=== PATIENT | female | born 1990 | race Caucasian/White ===

== ENCOUNTER 2024-12-22 14:29 | Outpatient (CLI) | payer OTHER, SELFPAY ==
--- OUTSIDE RECORDS SUMMARY | 2024-12-22 14:34 | XMS_ITS | Referral Summary ---
Author Organization [address] Address [facility] [place] [address] Care Team Providers Care Golf Club Weigher Name Role Phone Kitty Roach MD Primary Care Provider [phone] Allergies No known active allergies Medications 25/iron fum/folic/dha (-1 ORAL) Take by mouth Active escitalopram (LEXAPRO) 10 mg tablet Take 2 tablets (20 mg total) by mouth daily 3 Active norethindrone (MICRONOR) 0.35 mg tabletIndications: Contraception Take 1 tablet (0.35 mg total) by mouth daily 84 tablet 3 3 Active Active Problems Problem Noted Date Diagnosed Date care following vaginal delivery 09/08 Overview (09/09/2023): # ID: Afebrile. No signs/symptoms of infection. # Heme: EBL 250 mL. Hemodynamically stable. # CV/Pulm: Gestational hypertension - Blood pressures well controlled on no meds. Asymptomatic, denies HARRELL/RUQ pain/vision changes. CBC/CMP wnl, UPC <136.2. Enrolled in home BP monitoring. # GI/: Tolerating PO. Voiding spontaneously. # Pain: Controlled with above regimen. # MOC: Desires to defer until PP visit. # MOF: . Urine drug screen not indicated. Patient informed of results: N/A. # Post DVT prophylaxis: The patient has the following MAJOR risk factors none and the following MINOR risk factors none. SCDs ordered for VTE prophylaxis. # Disposition: Follow up to be scheduled with primary OB. Desires discharge home today. Meeting milestones. Generalized anxiety disorder 01/10/2020 Resolved Problems Problem Noted Date Diagnosed Date Resolved Date Gestational hypertension, third trimester 09/07/2023 10/18/2023 Encounter for induction of labor 09/07/2023 10/18/2023 Overview (09/07/2023): Ashwin Thomas is a 33 y.o. female at 39w0d who is dated by L=1 and is being admitted for an induction of labor secondary to gHTN . Admit to L&D: Consents signed and placed in chart. Labs: CBC and T&S pending. Induction of labor with oxytocin . FWB: Continuous monitoring. Reactive NST. ID: 3rd trimester HIV (>28 wga) negative on 08/19. GBS negative on 08/19 . RPR on admission: negative. Membrane Status: intact. Indications for UDS: none. Verbal consent obtained for UDS: Not indicated. MOF: Plans to breastfeed. Urine drug screen not indicated. Patient informed of results: N/A. MOC: Undecided on contraception. Pain management: Desires epidural. Post DVT prophylaxis: The patient has the following MAJOR risk factors none and the following MINOR risk factors none. SCDs will be ordered for VTE prophylaxis . gHTN: met criteria with 2 MR BPs in office on multiple different visits. CBC/CMP on admission wnl, UPC <0.1. Supervision of other normal , antepartum 01/25/2023 10/18/2023 Overview (09/07/2023): -GEORGI pt until 10/29, spontaneous preg! Anxiety-stable on escitalopram -pap neg at NOB -COVID+ @ 22wks and 31 weeks, for 36wk growth sched 08/19 -EFW 94% @ 36wks -Gestational HTN at [id number]--rpng for IOL [x] Initial BMI: 23 [x] Labs: Labs: Lab Results Component Value Date ABORH O Positive 02/02/2023 IDCOOMB Negative 02/02/2023 [id number] Nonreactive 02/02/2023 LABRPR Nonreactive 02/02/2023 RUBELIGG Reactive 01/17/2022 HEPBSAG Nonreactive 02/02/2023 [x] Genetic Screening: Carrier panel negative for 200+ genes, nml Panorama [x] Baby ASA: n/a [x] 1hr GCT at 24-28wks: nml, 97 [x] Tdap (27-36wks):06/21/2023 AM [x] Flu Shot: 08/02-hr [x] COVID vaccine: [] Rhogam (if Rh neg): n/a O+ [x] GBS at 36 wks:Negative [x] [] control method: undecided [x] 39 weeks discussion of IOL vs. Expectant management: [x] Mode of delivery: anticipate [] For C/S bottle of CHG 4% and hand out provided @ 36wks Dax Cruz , circ+, , undecided on peds Teaching: [x] 1st visit [x] 28-30 week [x] 36 week Immunizations Name Administration Dates Next Due Influenza, Quadrivalent, June l Culture-based MDCK, Preservative Free, Antibiotic Free, Intramuscular 08/02/2023 Tdap 06/21/2023 Social History Tobacco Use Types Packs/Day Years Used Date Smoking Tobacco: Former Cigarettes Smokeless Tobacco: Never Tobacco Cessation:Counseling Given: Not Answered Alcohol Use Standard Drinks/Week Comments Yes 2 (1 standard drink = 0.6 oz pur e alcohol) Social Connection and Isolat ion Panel [NHANES] Answer Date Recorded In a typical week, how many times do you talk on the phone with family, friends, or neighbors? More than three times a week 09/09/2023 How often do you get togethe r with friends or relatives? More than three times a week 09/09/2023 How often do you attend chur ch or episcopalian services? Never 09/09/2023 Do you belong to any clubs o r organizations such as zoroastrianism groups, unions, fraternal or athletic groups, or school groups? No 09/09/2023 How often do you attend meet ings of the clubs or organizations you belong to? Never 09/09/2023 Are you , , di vorced, , never , or living with a partner? 09/09/2023 AUDIT-C Answer Date Recorded Q1: How often do you have a drink containing alcohol? Never 02/02/2023 Q2: How many drinks containi ng alcohol do you have on a typical day when you are drinking? Patient does not drink 3 Q3: How often do you have si x or more drinks on one occasion? Never 02/02/2023 Overall Financial Resource Strain (CARDIA) Answe r Date Recorded How hard is it for you to pa y for the very basics like food, housing, medical care, and heating? Not very hard 09/09/2023 Exercise Vital Sign Answer Date Recorde d On average, how many days pe r week do you engage in moderate to strenuous exercise (like a brisk walk)? 4 days 01/10/2020 On average, how many minutes do you engage in exercise at this level? 30 min 01/10/2020 Hunger Vital Sign Answer Date Recorded Within the past 12 months, y ou worried that your food would run out before you got the money to buy more. Never true 09/09/20 23 Within the past 12 months, t he food you bought just didn't last and you didn't have money to get more. Never true 09/09/2023 PRAPARE - Transportation Answer Date Re corded In the past 12 months, has l ack of transportation kept you from medical appointments or from getting medications? No 12/2022 In the past 12 months, has l ack of transportation kept you from meetings, work, or from getting things needed for daily living? No 09/09/2023 Housing Stability Vital Sign Answer Vu e Recorded In the last 12 months, was t here a time when you were not able to pay the mortgage or rent on time? No 09/09/2023 In the last 12 months, how many places have you lived? 1 09/09/2023 In the last 12 months, was t here a time when you did not have a steady place to sleep or slept in a fdc (including now)? No 09/09/2023 Custer Depression Scale Answer Date Recorded Custer Depression Scale Total 6 10/18/2023 The thought of harming myself has occurred to me . Never 10/18/2023 Personal Safety Answer Date Recorded Have you ever been in or are you currently in a harmful physical or emotional relationship or is someone making you feel afraid or unsafe? Denies 09/07/2023 Education Answer Date Recorded What is the highest level of school you have completed or the highest degree you have received? 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 file Not on file Not on f ile Last Filed Vital Signs Vital Sign Reading Time Taken Comments Blood Pressure 121/82 10/18/2023 2:52 PM LICENSED CLINICIAN Pulse 74 09/09/2023 7:35 AM CDT Temperature 36.3 C (97.3 F) 09/09/2023 7:35 AM CDT Respiratory Rate 18 09/09/2023 7:35 AM CDT Oxygen Saturation 100% 09/09/2023 7:35 AM CDT Inhaled Oxygen Concentration - - Weight 81 kg (178 lb 9.6 oz) 10/18/2023 2:52 PM LICENSED CLINICIAN Height 175.3 cm (5' 9.02 ) 10/18/2023 2:52 PM CS T Body Mass Index 26.36 10/18/2023 2:52 PM LICENSED CLINICIAN Plan of Treatment Not on file Procedures Procedure Name Priority Date/Time Associated Diagnosis Comments HEPATITIS C ANTIBODY Routine 06/02/2023 1:30 PM CDT Encounter for supervision of normal first in third trimester PAP AND HIGH RISK HPV, REFLEX TO GENOTYPING Routine 02/02/2023 1:59 PM CDT Supervision of other normal , antepartum from Last 3 Months or Most Recently Relevant to Health Maintenance Results * Hepatitis C antibody (06/02/2023 1:30 PM CDT) Hep C Ab Nonreactive Nonreactive [facility] Comment:Antibodies to HCV no t detected. Does NOT exclude the possibility of recent exposure to HCV. Current interpretive data was last revised on 22 Blood 06/02/2023 1:30 PM CDT 06/02/2023 2:20 PM CDT Darlin Bower NP LAB MICROBIOLOGY - GENERAL ORDERABLES Final Result [facility] Department [place] [address] * Pap and High Risk HPV, reflex to Genotyping (02/02/2023 1:59 PM CDT) Thin prep (Pap test) 02/02/2023 1:59 PM CDT 02/02/2023 4:40 PM CDT Narrative PATHOLOGY [facility] - 02/10/2023 2:37 PM CDT EPIC results best viewed via link to PDF [facility] [place] [address] Note to Patients: This report may contain a detailed description of human tissue sent by a health care provider to the laboratory for pathologic evaluation. The content of this report is essential for diagnosis and may provide important critical findings. This information may be unfamiliar to patients to review without a medical professional present. It is advised that the patient review this report in the presence of a health care provider who can answer questions and explain the details. CYTOPATHOLOGY REPORT FINAL Patient Name: ASHWIN THOMAS Gender: F : 1990 (Age: 32) Address: [address] [place] [phone] [facility] #: [id number] Service: Gynecology Location: Patient Type: [facility] SPECIMEN Taken: 02/02/2023 Received: 02/02/2023 Accessioned: 02/02/2023 Reported: 02/10/2023 Physician(s): Kelly Li M.D. FINAL INTERPRETATION SOURCE OF SPECIMEN Liquid based Thin Prep pap with HPV: STATEMENT OF ADEQUACY - Satisfactory for evaluation - No endocervical/transformation zone sample present in a patient GENERAL CATEGORIZATION: - Negative for squamous intraepithelial lesion or malignancy INTERPRETATION: - Reactive cellular changes Comments HPV Result: NEGATIVE for high risk types of Human Papilloma Virus (HPV) RNA This probe detects the presence of HPV types: 16, 18, 31, 33, 35, 39, 45, 51, 52, 56, 58, 59, 66 and 68. This HPV test was performed at in [place], [place] utilizing the Gen-Probe Aptima assay. 02/10/2023 09:47 By this signature, I attest that the above diagnosis is based upon my personal examination of the slides(and/or other material indicated in the diagnosis). Theo Urrutia M.D. Report Electronically Reviewed and Signed Out By Theo Urrutia M.D. 02/10/2023 14:37:44 RAMÍREZ Juarez(ASCP) Cervicovaginal Cytology (Pap Test) Disclaimer: The Pap test is a screening test used to detect cervical cancer and its precursors; it is not a diagnostic procedure. False negative and false positive results do occur. Pap test results should be interpreted in the context of pertinent clinical information and biopsy results as indicated. [facility] Clinical Laboratory Improvement Amendments (CLIA) mandate that cytologic and histologic results be correlated for laboratory manager quality improvement & improvement standards. FOR ALL HIGH-GRADE CASES we request submission of follow-up histological material and/or reports that have not been previously provided so that we may fulfill said required standards. Gross Description A. Liquid based Thin Prep pap with HPV: Cervical/vaginal - Screening ThinPrep GC CHLAMYDIA Clinical Diagnosis and History Last Menstrual Period: 12-08-2022 The patient is a 32-year-old female present for cervical cancer screening. [place] [address]. The Gonorrhea/[place] [address]. Report Images and scanned documents, if included only viewable in PDF version The performance characteristics of some immunohistochemical stains, in-situ hybridization and fluorescence in-situ hybridization tests and immunophenotyping by flow cytometry cited in this report (if any) were determined by the Surgical Pathology Department at [facility] as part of an ongoing coding quality analyst program and in compliance with federally mandated regulations drawn from the Clinical Laboratory Improvement Act of 1988 (CLIA '88). Some of these tests rely on the use of analyte specific reagents and are subject to specific labeling requirements by the US Food and Drug Administration. Such diagnostic tests may only be performed in a facility that is certified by the Department of Health and Human Services as a high complexity laboratory under CLIA '88. The FDA has determined that such clearance or approval is not necessary. This test is used for clinical purposes. It should not be regarded as investigational or for research. Nevertheless, federal rules concerning the medical use of analyte specific reagents require that the following disclaimer be attached to the report: This test was developed and its performance characteristics determined by the Surgical Pathology Department of [facility]. It has not been cleared or approved by the U. S. Food and Drug Administration. Kelly Li MD LAB CYTOLOGY O RDERABLES Final Result Performing Organization Address City/State/[facility] Co de Phone Number PATHOLOGY [facility] 3rd Floor [place], [place] [phone] from Last 3 Months or Most Recently Relevant to Health Maintenance Insurance [employer] [facility] H[facility]/PPO Address: [facility] [address] [place] [address] [facility] CHOICE [facility] H[facility]/PPO Address: [place] [id number] Advance Directives For more information, please contact: [phone] * Full Code (Latest Code Status on File) Date Activated Date Inactivated Comments 09/08/2023 7:58 AM 09/09/2023 7:06 PM * Full Code Date Activated Date Inactivated Comments 09/07/2023 10:26 PM 09/08/2023 7:58 AM Full CPR i n case of cardiopulmonary arrest Care Teams Golf Club Weigher Relationship Specialty [place] [address] [place] [id number] PCP - General Lumber Buyer 11/28/19
--- OUTSIDE RECORDS SUMMARY | 2024-12-22 14:34 | XMS_ITS | Clinical Summary ---
Author Organization [address] Address [facility] [place] [address] Care Team Providers Care Nursery Technician Name Role Phone Kitty Roach MD Primary Care Provider [phone] Allergies No known active allergies Medications 25/iron [...] -EFW 94% @ 36wks -Gestational HTN at 69b1o--mzgw for IOL [x] Initial BMI: 23 [x] Labs: Labs: Lab Results Component Value Date ABORH O Positive 02/02/2023 IDCOOMB Negative 02/02/2023 [id number] Nonreactive 02/02/2023 LABRPR Nonreactive 02/02/2023 RUBELIGG Reactive [...] Free, Antibiotic Free, Intramuscular 08/02/2023 Tdap 06/21/2023 Family History Medical History Relation Name Comments Mental illness Brother Mental illness Father No Known Problems Mother Relation Name Status Comments Brother Father Alive Mother Alive Social History Tobacco Use Types Packs/Day Years [...] 09/09/2023 How often do you attend chur or oriental orthodox services? Never 09/09/2023 Do you belong to any clubs o r organizations such as worship groups, unions, fraternal or athletic groups, or [...] place to sleep or slept in a halfway (including now)? 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 on file Not on file Not on f ile Obstetrics History Para Term AB IAB SAB Ectopic Multiple Livin g Live Births 1 1 1 0 0 0 0 0 0 1 1 Date Outcome GA Total Labor Labor/2nd/3rd Weight Sex Type Anes PTL Muna A1 A5 Name Clin 2022 Term 39w 1d 6h 25m 5h 06m/1h 15m/0h 04m 3.58 kg (7 lb 14.3 oz) M Vagina l Epidur al N Livin g 8 9 KRUTH OFF,B SHONA A Gregory rs, Gurwinder link MD Complications:None Delivery Location:[facility] Main C ampus ([facility] 58LD) Comments [id number] for new onset gHTN @ 39w0d (nml labs) Last Filed Vital Signs Vital Sign Reading Time Taken Comments Blood Pressure 121/82 10/18/2023 2:52 PM NAVAL SCIENCE TEACHER Pulse 74 09/09/2023 7:35 AM CDT Temperature 36.3 C (97.3 F) 09/09/2023 7:35 AM CDT Respiratory Rate 18 09/09/2023 7:35 AM CDT Oxygen Saturation 100% 09/09/2023 7:35 AM CDT Inhaled Oxygen Concentration - - Weight 81 kg (178 lb 9.6 oz) 10/18/2023 2:52 PM NAVAL SCIENCE TEACHER Height 175.3 cm (5' 9.02 ) 10/18/2023 2:52 PM CS T Body Mass Index 26.36 10/18/2023 2:52 PM NAVAL SCIENCE TEACHER Plan of Treatment Health Maintenance Due Date Last Done Comments Varicella Vaccines (1 of 2 - 13+ 2-dose series) 2005 Hepatitis B Screening 2010 Regular Well Visit/Exam 18-64 01/09/2021 01/10/2020 Cervical Cancer Screening 02/03/2024 02/02/2023 Covid-19 Vaccine ( season) 2024 10/10/2022, 11/03/2021, 01/24/2021, Additional history exists Influenza Vaccine (#1) 2024 08/02/2023 Depression Screening 10/18/2024 10/18/2023 DTaP/Tdap/Td Vaccine (2 - Td or Tdap) 06/21/2033 06/21/2023 Hepatitis C Screening Completed 06/02/2023 HPV Vaccines Aged Out No longer eligi ble based on patient's age to complete this topic Pneumococcal vaccine <65 Aged Out No longer eligible based on patient's age to complete this topic Procedures Procedure Name Priority Date/Time Associated Diagnosis [...] CDT) Hep C Ab Nonreactive Nonreactive [facility] Comment:Antibodies to HCV no t detected. Does NOT exclude the possibility of recent exposure to HCV. Current interpretive data was last revised on 22 Blood 06/02/2023 1:30 PM CDT 06/02/2023 2:20 PM CDT Darlin Bower NP LAB MICROBIOLOGY - GENERAL ORDERABLES Final Result KATH [facility] Department [place] [address] * Pap and High Risk HPV, reflex to Genotyping (02/02/2023 1:59 PM CDT) Thin prep (Pap test) 02/02/2023 1:59 PM CDT 02/02/2023 4:40 PM CDT Narrative PATHOLOGY [facility] - 02/10/2023 2:37 PM CDT EPIC results best viewed via link to PDF [facility] [place] [address] Note to Patients: This report may contain [...] Gender: F : 1990 (Age: 32) Address: [address] [place], [place] [id number] [facility] #: [id number] Service: Gynecology Location: Patient Type: [facility] SPECIMEN Taken: 02/02/2023 Received: 02/02/2023 Accessioned: [...] 68. This HPV test was performed at [facility] in [place], [place] utilizing the Gen-Probe Aptima assay. 02/10/2023 [...] clinical information and biopsy results as indicated. [facility] Clinical Laboratory Improvement Amendments (CLIA) mandate that cytologic and histologic results be correlated for laboratory quality control projectionist & improvement standards. FOR ALL HIGH-GRADE CASES [...] screening. The [place] [address]. The Gonorrhea/Chlamydia [place] [address]. Report Images and scanned documents, if included only viewable in PDF version The performance characteristics of some immunohistochemical stains, in-situ hybridization and fluorescence in-situ hybridization tests and immunophenotyping by flow cytometry cited in this report (if any) were determined by the Surgical Pathology Department at [facility] as part of an ongoing quality compliance coordinator program and in compliance with federally mandated [...] determined by the Surgical Pathology Department of [facility]. It has not been cleared or approved by the U. S. Food and Drug Administration. us Kelly Li MD LAB CYTOLOGY O RDERABLES Final Result PATHOLOGY [facility] 3rd Floor [place], [place] [phone] from Last 3 Months or Most Recently Relevant to Health Maintenance Insurance [facility] CHOICE PLUS [place] [id number] [facility] CHOICE PLUS [place] [id number] Advance Directives For more information, please contact: [phone] * Full Code (Latest Code Status on File) Date Activated Date Inactivated Comments 09/08/2023 7:58 AM 09/09/2023 7:06 PM * Full Code Date Activated Date Inactivated Comments 09/07/2023 10:26 PM 09/08/2023 7:58 AM Full CPR i n case of cardiopulmonary arrest Care Teams Nursery Technician Relationship Specialty Start Date End Date Kitty Roach MD [address] [place] [address] PCP - General Ironworker 11/28/19
[2024-12-22 14:57] LABS: Hematocrit 39.6 % (37.0-47.0); Hemoglobin 12.9 g/dL (12.0-15.0); Mean Corpuscular HGB Conc 32.6 g/dl (32-36); Mean Corpuscular Hemoglobin 29.7 pg (26-34); Mean Platelet Volume 9.6 fl (7.4-10.4); Platelet Count Result 206 k/mm3 (150-375); Red Blood Count 4.35 M/mm3 (4.2-5.4); Red Cell Distribution Width 13.1 % (11.5-14.5); White Blood Count 7.8 K/mm3 (4.5-10.0)
[2024-12-22 15:38] LABS: Hepatitis B Surface Antigen Negative (Negative); Rubella IgG Antibody 18.7 IU/ML
[2024-12-22 15:50] LABS: HIV 1/2 Ab P24 Ag Result Negative (Negative)
[2024-12-23 10:54] LABS: Rapid Plasma Reagin Non-Reactive (NonReactive)
[2024-12-25 16:08] LABS: CMV IgG Antibody <0.60 U/mL; Varicella IgG Antibody <1.00 S/CO
== END 2024-12-22 14:30 | disposition home or self-care (01) ==
PROVIDERS: Visit Provider Student in an Organized Health Care Education/Training Program
DX: N91.2 Amenorrhea, unspecified (principal)
CPT/HCPCS: 36415; 84702; 85027; 86592; 86644; 86703; 86747; 86762; 86787; 86850; 86900; 86901; 87086; 87340; G0432

== ENCOUNTER 2025-05-22 08:37 | Outpatient (CLI) | payer OTHER, SELFPAY ==
--- OUTSIDE RECORDS SUMMARY | 2025-05-22 08:43 | XMS_ITS | Referral Summary ---
Author Organization [address] Address [facility] [place] [address] Care Team Providers Care Waxer Floor Name Role Phone Kitty Roach MD Primary Care Provider [phone] Allergies No known active allergies Medications 25/iron [...] -EFW 94% @ 36wks -Gestational HTN at 01h8x--rcof for IOL [x] Initial BMI: 23 [x] Labs: Labs: Lab Results Component Value Date ABORH O Positive 02/02/2023 IDCOOMB Negative 02/02/2023 [id number] Nonreactive 02/02/2023 LABRPR Nonreactive 02/02/2023 RUBELIGG Reactive [...] and hand out provided @ 36wks Dax Cruz, circ+, , undecided on peds Teaching: [x] 1st visit [x] 28-30 week [x] 36 week Immunizations Immunization Administration Dates Next Due Influenza, Quadrivalent, June [...] often do you attend chur ch or hindu services? Never 09/09/2023 Do you belong to any clubs o r organizations such as yarsani groups, unions, fraternal or athletic groups, or [...] place to sleep or slept in a jail (including now)? 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 on file Not on f ile Last Filed Vital Signs Vital Sign Reading Time Taken Comments Blood Pressure 121/82 10/18/2023 2:52 PM QUALITY LEAD Pulse 74 09/09/2023 7:35 AM CDT Temperature 36.3 C (97.3 F) 09/09/2023 7:35 AM CDT Respiratory Rate 18 09/09/2023 7:35 AM CDT Oxygen Saturation 100% 09/09/2023 7:35 AM CDT Inhaled Oxygen Concentration - - Weight 81 kg (178 lb 9.6 oz) 10/18/2023 2:52 PM QUALITY LEAD Height 175.3 cm (5' 9.02) 10/18/2023 2:52 PM CS T Body Mass Index 26.36 10/18/2023 2:52 PM QUALITY LEAD Plan of Treatment Not on file Procedures [...] CDT) Hep C Ab Nonreactive Nonreactive [facility]ATH [facility] Comment:Antibodies to HCV no t detected. Does NOT exclude the possibility of recent exposure to HCV. Current interpretive data was last revised on 22 Blood 06/02/2023 1:30 PM CDT 06/02/2023 2:20 PM CDT Darlin Bower NP LAB MICROBIOLOGY - GENERAL ORDERABLES Final Result KATH [facility] Department [place] [address] * Pap and High Risk HPV, reflex to Genotyping (02/02/2023 1:59 PM CDT) Thin prep (Pap test) 02/02/2023 1:59 PM CDT 02/02/2023 4:40 PM CD[address]ative PATHOLOGY [facility] - 02/10/2023 2:37 PM CDT EPIC results best viewed via link to PDF [facility] Mena Murphy Laboratory [place] [address] Note to Patients: This report may contain [...] Gender: F : 1990 (Age: 32) Address: [address] [place] [id number] [facility] #: [id number] Service: Gynecology Location: Patient Type: [facility] SPECIMEN Taken: 02/02/2023 Received: 02/02/2023 Accessioned: 02/02/2023 [...] 68. This HPV test was performed at [facility] in [place], [place] utilizing the Gen-Probe Aptima assay. 02/10/2023 [...] clinical information and biopsy results as indicated. [facility] Clinical Laboratory Improvement Amendments (CLIA) mandate that cytologic and histologic results be correlated for laboratory construction quality control manager & improvement standards. FOR ALL HIGH-GRADE CASES [...] screening. The [place] [address]. The Gonorrhea/[place] [address]. Report Images and scanned documents, if included only viewable in PDF version The performance characteristics of some immunohistochemical stains, in-situ hybridization and fluorescence in-situ hybridization tests and immunophenotyping by flow cytometry cited in this report (if any) were determined by the Surgical Pathology Department at [facility] as part of an ongoing manufacturing quality inspector program and in compliance with federally mandated [...] determined by the Surgical Pathology Department of [facility]. It has not been cleared or approved by the U. S. Food and Drug Administration. Kelly Li MD LAB CYTOLOGY O RDERABLES Final Result Performing Organization Address City/State/[facility] Co de Phone Number PATHOLOGY [facility] 3rd Floor [place], [place] [phone] from Last 3 Months or Most Recently Relevant to Health Maintenance Insurance [employer] CHOICE PLUS [facility] H[facility]/PPO Address: [facility] [address] [place] [address] [facility] CHOICE PLUS [facility] HMO/PPO Address: [place] [phone] Advance Directives For more information, please contact: [phone] * Full Code (Latest Code Status on File) Date Activated Date Inactivated Comments 09/08/2023 7:58 AM 09/09/2023 7:06 PM * Full Code Date Activated Date Inactivated Comments 09/07/2023 10:26 PM 09/08/2023 7:58 AM Full CPR i n case of cardiopulmonary arrest Care Teams Waxer Floor Relationship Specialty [place] [address] [place] [address] PCP - General Rn Acls 11/28/19
--- OUTSIDE RECORDS SUMMARY | 2025-05-22 08:43 | XMS_ITS ---
Author Organization [facility] [employer] [facility] Address [address] [place] [address] Care Team Providers Care Manager Security Name Role Phone Jose Elias Romeo Primary Care Provider [phone] REASON FOR VISIT 3 month f/u Social History Sex Assigned At : Social History Observation Description Sex Assigned At Female Encounters Encounter Location Date Provider Diagnosis [address] [address] 07/05/2024 Romeo Moctezuma Plan Of Treatment Next Appt Details Provider Name:Romeo Davis Yolie aldridge, 07/24/2025 03:30:00 PM, [address] [place] [address], [phone], Progress Notes * Bibi THOMASaDOB:1990 (34 yo F)Acc No.[id number]:07/05/2024 Progress Notes Patient: Otoniel Cristina GRIMM Provider: Star Moctezuma MD :1990 A ge:33 Y S ex:Female Date:07/05/2024 Address:[address] [place] [phone] Subjective: * Chief Complaints: * 1 . 3 month f/u. * Medical History: * Implants: Objective: * Vitals: Assessment: Plan: * Treatment: * Billing Information: * Visit Code: * Procedure Codes: Care Plan Details* * Electronic signature of Arian Moctezuma M.D. on 05/22/2025 at 08:43 AM CDT Sign off status: Pending * Provider: Star Moctezuma MD Date: 0 07/05/2024 Generated for Alma tam/New/Donald on: 0 05/22/2025 08:43 AM CDT
--- OUTSIDE RECORDS SUMMARY | 2025-05-22 08:43 | XMS_ITS ---
Author Organization [facility] Address [address] [place] [address] Care Team Providers Care Delivery And Mail Sorter Name Role Phone Jose Elias Romeo Primary Care Provider [phone] REASON FOR VISIT 3 month f/u Social History Sex Assigned At : Social History Observation Description Sex Assigned At Female Encounters Encounter Location Date Provider Diagnosis [address] [address] 07/06/2024 Romeo Moctezuma Plan Of Treatment Next Appt Details Provider Name:Romeo Davis Yolie aldridge, 07/24/2025 03:30:00 PM, [address] [place] [address], [phone], Progress Notes * Bibi THOMASaDOB:1990 (34 yo F)Acc No.[id number]:07/06/2024 Progress Notes Patient: Otoniel Cristina GRIMM Provider: Star Moctezuma MD :1990 A ge:33 Y S ex:Female Date:07/06/2024 Address:[address] [place] [phone] Subjective: * Chief Complaints: * 1 . 3 month f/u. * Medical History: * Implants: Objective: * Vitals: Assessment: Plan: * Treatment: * Billing Information: * Visit Code: * Procedure Codes: Care Plan Details* * Electronic signature of Arian Moctezuma M.D. on 05/22/2025 at 08:42 AM CDT Sign off status: Pending * Provider: Star Moctezuma MD Date: 0 07/06/2024 Generated for Alma tam/New/Donald on: 0 05/22/2025 08:42 AM CDT
--- OUTSIDE RECORDS SUMMARY | 2025-05-22 08:43 | XMS_ITS | Patient Health Record ---
[facility] Address [address] [place] [address] Care Team Providers Care Intermediate Designer Name Role Phone Romeo Moctezuma Primary Care Provider [phone] Allergies No Known Allergies Reason For Referral No Information Medications Medication SIG (Take, Route, Frequency, Duration) Notes Start Date End Date Status buPROPion HCl ER (XL) 150 MG 1 tablet in the morning Orally Once a day for 90 days 06/01/2024 Active Escitalopram Oxalate 20 MG TAKE 1 TABLET BY MOUTH DAILY for 90 Active Immunizations Vaccine Route Administration Date Status Comme nts Comirnaty Covid-19 Vaccine, mRNA (2023-2024Formula) IM Intramuscular 07/24/2024 Administered Flulaval Unknown 08/12/2020 Pending Flulaval Quadrivalent (Influenza Vaccine) IM Intramuscular 07/24/2024 Administered Social History Tobacco Use: Social History Observation Description Date Details (start date - stop date) Former Smoker NA - NA Sex Assigned At : Social History Observation Description Sex Assigned At Female Tobacco Use/Smoking Question Answer Notes Smoking Status: former smoker How long has it been since you last smoked? 1-3 months Alcohol Screen (Audit-C) Question Answer Notes Did you have a drink contain ing alcohol in the past year? Yes How often did you have a dri nk containing alcohol in the past year? 2 to 3 times a week (3 points) How many drinks did you have on a typical day when you were drinking in the past year? 3 or 4 drinks (1 point) How often did you have 6 or more drinks on one occasion in the past year? Less than monthly (1 point) Points 5 Interpretation Positive Tobacco use other than smoking: Question Answer Notes Are you an other tobacco user? No Problems Problem Type SNOMED Code ICD Code Onset Dates Problem Status W/U Status Risk Notes Problem CAROL (generalized anxiety disorder) (F41.1) Active confirmed Problem [id number] Adult ADHD (F90.9) Active confirmed Vital Signs Heart Rate 76 /min 07/24/2024 Temperature 99.0 degrees Fahrenheit 07/24/2024 Respiratory Rate 16 /min 07/24/2024 Oximetry 99 % 07/24/2024 Blood pressure diastolic 80 mm Hg 07/24/2024 Height 69 in 07/24/2024 Blood pressure systolic 128 mm Hg 07/24/2024 Weight 165.6 lbs 07/24/2024 BMI 24.45 kg/m2 07/24/2024 Encounters Encounter Location Date Provider Diagnosis [address] [address] 07/24/2024 Romeo Moctezuma Adult ADHD F90.9 ; Generalized anxiety disorder F41.1 and Encounter for immunization Z23 [address] [address] 06/01/[address] [address] 06/01/[address] [address] 06/11/[address] [address] 06/13/2024 Romeo Moctezuma Adult ADHD F90.[address] [address] 07/06/[address] [address] 07/06/[address] [address] 07/13/2024 Romeo Moctezuma Adult ADHD F90.[address] [address] 08/10/2024 Romeo Barriosovan Adult ADHD F90.[address] [address] 09/09/2024 Romeo Moctezuma Adult ADHD F90.9 [facility] [address] [place] [address] 09/12/2024 Romeo Moctezuma Adult ADHD F90.9 [facility] [address] [place] [address] 10/09/2024 Romeo Moctezuma Adult ADHD F90.9 [facility] [address] [place] [address] 10/11/2024 Romeo Moctezuma Adult ADHD F90.[address] [address] 11/08/2024 Romeo Moctezuma [address] [address] 11/10/2024 Romeo Moctezuma Adult ADHD F90.[address] [address] 11/13/2024 Romeo Moctezuma Adult ADHD F90.[address] [address] 11/13/2024 Romeo Moctezuma Adult ADHD F90.9 Assessments Encounter Date Diagnosis (ICD Code) Assessment Notes Treatment Notes Treatment Clinical Notes Section Notes 06/13/2024 Adult ADHD (ICD-10 - F90.9) 07/13/2024 Adult ADHD (ICD-10 - F90.9) 07/24/2024 Generalized anxiety disorder (ICD-10 - F41.1) ADHD and CAROL stable. Continue medications at current dose. COVID and influenza vaccines today. 07/24/2024 Adult ADHD (ICD-10 - F90.9) ADHD and CAROL stable. Continue medications at current dose. COVID and influenza vaccines today. 08/10/2024 Adult ADHD (ICD-10 - F90.9) 09/09/2024 Adult ADHD (ICD-10 - F90.9) 09/12/2024 Adult ADHD (ICD-10 - F90.9) 10/09/2024 Adult ADHD (ICD-10 - F90.9) 10/11/2024 Adult ADHD (ICD-10 - F90.9) 11/10/2024 Adult ADHD (ICD-10 - F90.9) 11/13/2024 Adult ADHD (ICD-10 - F90.9) 11/13/2024 Adult ADHD (ICD-10 - F90.9) 07/24/2024 Encounter for immunization (ICD-10 - Z23) ADHD and CAROL stable. Continue medications at current dose. COVID and influenza vaccines today. Plan Of Treatment Next Appt Details Provider Name:Romeo Urbano luis carlos, 07/24/2025 03:30:00 PM, [address] [place], [address], Insurance Providers Payer Name Payer Address Payer Phone Subscriber Number Group Number Insured Name Patient Relationship to Insured Coverage Start Date Coverage End Date [facility] [address] [address] [place] [address] [id number] Cristina Green Self - patient is the insured Medical (General) History Medical History History ICD Code Pap: Over a year ago attention deficit disorder: Yes Other not mentioned: Pain in left hip that radiates down the leg - ongoing since August 2019
--- OUTSIDE RECORDS SUMMARY | 2025-05-22 08:43 | XMS_ITS | Clinical Summary ---
Author Organization [address] Address [facility] [place] [address] Care Team Providers Care Plate Colorer Name Role Phone Kitty Roach MD Primary Care Provider [phone] Allergies No known active allergies Medications 25/iron [...] -EFW 94% @ 36wks -Gestational HTN at 03y0d--xjay for IOL [x] Initial BMI: 23 [x] Labs: Labs: Lab Results Component Value Date ABORH O Positive 02/02/2023 IDCOOMB Negative 02/02/2023 [id number] Nonreactive 02/02/2023 LABRPR Nonreactive 02/02/2023 RUBELIGG Reactive [...] How often do you attend chur or yazidism services? Never 09/09/2023 Do you belong to any clubs o r organizations such as yazidism groups, unions, fraternal or athletic groups, or [...] place to sleep or slept in a mcfp (including now)? No 09/09/2023 [place] Depression Scale Answer Date Recorded [place] Depression Scale Total 6 10/18/2023 The thought [...] Master's degree (e.g., MA, MS, Kori, MEd, POST GRADUATE INTERNSHIP, VANITA) 01/11/2020 Comments No Sex and Gender Information Value Date Recorded Sex Assigned at Not on file Legal Sex Female 12:31 PM MIGRATORY GAME BIRD BIOLOGIST Gender Identity Not on file Sexual Orientation [...] Gregory rs, Gurwinder link MD Complications:None Delivery Location:[facility] Main [facility] ([facility]LD) Comments [id number] for new onset gHTN @ 39w0d (nml labs) Last Filed Vital Signs Vital Sign Reading Time Taken Comments Blood Pressure 121/82 10/18/2023 2:52 PM MIGRATORY GAME BIRD BIOLOGIST Pulse 74 09/09/2023 7:35 AM CDT Temperature 36.3 C (97.3 F) 09/09/2023 7:35 AM CDT Respiratory Rate 18 09/09/2023 7:35 AM CDT Oxygen Saturation 100% 09/09/2023 7:35 AM CDT Inhaled Oxygen Concentration - - Weight 81 kg (178 lb 9.6 oz) 10/18/2023 2:52 PM MIGRATORY GAME BIRD BIOLOGIST Height 175.3 cm (5' 9.02) 10/18/2023 2:52 PM CS T Body Mass Index 26.36 10/18/2023 2:52 PM MIGRATORY GAME BIRD BIOLOGIST Plan of Treatment Health Maintenance Due Date Last Done Comments Varicella Vaccines (1 of 2 - 13+ 2-dose series) 2005 Hepatitis B Screening 2010 Regular Well Visit/Exam 18-64 01/09/2021 01/10/2020 Cervical Cancer Screening 02/03/2024 02/02/2023 Covid-19 Vaccine ( season) 2024 10/10/2022, 11/03/2021, 01/24/2021, Additional history exists Depression Screening 10/18/2024 10/18/2023 Influenza Vaccine (Season Ended) 2025 08/02/2023 DTaP/Tdap/Td Vaccine (2 - Td or Tdap) [...] GENERAL ORDERABLES Final Result KATH SAUER [facility] Department [place] [address] * Pap and High Risk HPV, reflex to Genotyping (02/02/2023 1:59 PM CDT) Thin prep (Pap test) 02/02/2023 1:59 PM CDT 02/02/2023 4:40 PM CDT Narrative PATHOLOGY [facility] - 02/10/2023 2:37 PM CDT EPIC results best viewed via link to PDF [facility] [place] [address] Note to Patients: This report may contain [...] Gender: F : 1990 (Age: 32) Address: [address] [place], [place] [id number] [facility] #: [id number] Service: Gynecology Location: Patient Type: [facility] SPECIMEN Taken: 02/02/2023 Received: 02/02/2023 Accessioned: 02/02/2023 [...] 68. This HPV test was performed at [facility] in [place], [place] utilizing the Gen-Probe Aptima assay. 02/10/2023 [...] clinical information and biopsy results as indicated. [facility] Clinical Laboratory Improvement Amendments (CLIA) mandate that cytologic and histologic results be correlated for laboratory director of quality improvement & improvement standards. FOR ALL [...] screening. The [place] [address]. The Gonorrhea/[place] [address]. Report Images and scanned documents, if included only viewable in PDF version The performance characteristics of some immunohistochemical stains, in-situ hybridization and fluorescence in-situ hybridization tests and immunophenotyping by flow cytometry cited in this report (if any) were determined by the Surgical Pathology Department at [facility] as part of an ongoing director of quality improvement program and in compliance with federally mandated [...] by the Surgical Pathology Department of [facility]. It has not been cleared or approved by the U. S. Food and Drug Administration. us Kelly Li MD LAB CYTOLOGY O RDERABLES Final Result PATHOLOGY [facility] 3rd Floor [place], [place] [phone] from Last 3 Months or Most Recently Relevant to Health Maintenance Insurance [facility] [employer] [employer] [place] [id number] [facility] [employer] [employer] [place] [id number] Advance Directives For more information, please contact: [phone] * Full Code (Latest Code Status on File) Date Activated Date Inactivated Comments 09/08/2023 7:58 AM 09/09/2023 7:06 PM * Full Code Date Activated Date Inactivated Comments 09/07/2023 10:26 PM 09/08/2023 7:58 AM Full CPR i n case of cardiopulmonary arrest Care Teams Plate Colorer Relationship Specialty Start Date End Date Kitty Roach MD [address] [place] [address] PCP - General Coding Compliance Specialist 11/28/19
[2025-05-22 09:56] LABS: Hematocrit 38.5 % (37.0-47.0); Hemoglobin 12.7 g/dL (12.0-15.0); Immature Granulocyte Percent A 0.8 % (0-0.5); Lymphocytes Absolute Auto 1.69 K/mm3 (0.9-3.2); Mean Corpuscular HGB Conc 33.0 g/dl (32-36); Mean Corpuscular Hemoglobin 30.6 pg (26-34); Mean Corpuscular Volume 92.8 fl (80-100); Nucleated Red Blood Cells Absolute Auto 0.000 K/mm3 (0.0-0.012); Nucleated Red Blood Cells Perc 0.0 % (0.0-0.2); Platelet Count Result 237 k/mm3 (150-375); Red Blood Count 4.15 M/mm3 (4.2-5.4); White Blood Count 9.8 K/mm3 (4.5-10.0)
[2025-05-22 10:27] LABS: Glucose 1 Hour PP 50gm Dose 84 mg/dL
[2025-05-22 11:08] LABS: HIV 1/2 Ab P24 Ag Result Negative (Negative)
[2025-05-22 11:13] LABS: Syphilis IgG/IgM Antibody Non-Reactive (Nonreactive)
== END 2025-05-22 08:38 | disposition home or self-care (01) ==
LOC: ANHLAB 08:38
PROVIDERS: Visit Provider Student in an Organized Health Care Education/Training Program
DX: Z34.90 Encounter for supervision of normal pregnancy, unspecified, unspecified trimester (principal)
CPT/HCPCS: 36415; 82947; 85025; 86593; 86703; G0432

== ENCOUNTER 2025-08-05 16:57 | Inpatient (IN) | payer OTHER, SELFPAY ==
--- OUTSIDE RECORDS SUMMARY | 2024-07-05 10:10 | XMS_ITS ---
Author Organization [facility] Address [address] [place] [phone] Care Team Providers Care Occ Therapy Asst Name Role Phone Romeo Moctezuma Primary Care Provider REASON FOR VISIT 3 month f/u Social History Sex Assigned At : Social History Observation Description Sex Assigned At Female Encounters Encounter Location Date Provider Diagnosis [address] [address] 07/05/2024 Romeo Moctezuma Plan Of Treatment No Information Progress Notes * Bibi THOMASaDOB:1990 (34 yo F)Acc No.[id number]:07/05/2024 Progress Notes Patient: Cristina FOSTER Provider: Star Moctezuma MD :1990 A ge:33 Y S ex:Female Date:07/05/2024 Address:[address] [place] [id number] Subjective: * Chief Complaints: * 1 . 3 month f/u. * Medical History: * Implants: Objective: * Vitals: Assessment: Plan: * Treatment: * Billing Information: * Visit Code: * Procedure Codes: Care Plan Details* * Electronic signature of Arian Moctezuma M.D. on 08/05/2025 at 05:04 PM CDT Sign off status: Pending * Provider: Star Moctezuma MD Date: 07/05/2024 Generated for Bryni anel/New/eTransmitting on: 08/05/2025 05:04 PM CDT
--- OUTSIDE RECORDS SUMMARY | 2024-07-06 11:10 | XMS_ITS ---
Author Organization [facility] [employer] [facility] Address [address] [place] [address] Care Team Providers Care Art Installer Name Role Phone Romeo Moctezuma Primary Care Provider [phone] REASON FOR VISIT 3 month f/u Social History Sex Assigned At : Social History Observation Description Sex Assigned At Female Encounters Encounter Location Date Provider Diagnosis [address] [address] 07/06/2024 Romeo Moctezuma Plan Of Treatment No Information Progress Notes * Bibi THOMASaDOB:1990 (34 yo F)Acc No.[id number]:07/06/2024 Progress Notes Patient: Cristina FOSTER Provider: Star Moctezuma MD :1990 A ge:33 Y S ex:Female Date:07/06/2024 Address:[address] [place] [phone] Subjective: * Chief Complaints: * 1 . 3 month f/u. * Medical History: * Implants: Objective: * Vitals: Assessment: Plan: * Treatment: * Billing Information: * Visit Code: * Procedure Codes: Care Plan Details* * Electronic signature of Arian Moctezuma M.D. on 08/05/2025 at 05:04 PM CDT Sign off status: Pending * Provider: Star Moctezuma MD Date: 07/06/2024 Generated for Alma tam/New/eTransmitting on: 08/05/2025 05:04 PM CDT
--- OUTSIDE RECORDS SUMMARY | 2025-07-24 10:30 | XMS_ITS ---
[facility] Organization [facility] Address [address] [place] [address] Care Team Providers Care Draw Hand Name Role Phone Jose EliasRomeo Primary Care Provider REASON FOR VISIT annual Social History Sex Assigned At : Social History Observation Description Sex Assigned At Female Encounters Encounter Location Date Provider Diagnosis [address] [address] 07/24/2025 Romeo Moctezuma Plan Of Treatment No Information Progress Notes * Bibi THOMASaDOB:1990 (34 yo F)Acc No.[id number]:07/24/2025 Annual Physical Patient: Otoniel GRIMM Cristina Provider: Star Moctezuma MD :1990 A ge:34 Y S ex:Female Date:07/24/2025 Address:[address] [place], [place] [phone] Subjective: * Chief Complaints: * 1 . Annual. * Medical History: * Implants: Objective: * Vitals: Assessment: Plan: * Treatment: * Billing Information: * Visit Code: * Procedure Codes: Care Plan Details* * Electronic signature of Arian Moctezuma M.D. on 08/05/2025 at 05:04 PM CDT Sign off status: Pending * Provider: Star Moctezuma MD Date: 0 07/24/2025 Generated for Printi ng/Faxing/eTransmitting on: 0 08/05/2025 05:04 PM CDT
[2025-08-05] VITALS (17 sets, daily range): BP systolic 102–142; BP diastolic 44–76; PULSE 57–90; TEMP 36.6; BMI 30.9
--- OUTSIDE RECORDS SUMMARY | 2025-08-05 17:04 | XMS_ITS | Patient Health Record ---
Author Organization [facility] Address [address] [place] [address] Care Team Providers Care Food Critic Name Role Phone Romeo Moctezuma Primary Care Provider Allergies No Known Allergies Reason For Referral No Information Medications Medication SIG (Take, Route, Frequency, Duration) Notes Start Date End Date Status buPROPion HCl ER (XL) 150 MG 1 tablet in the morning Orally Once a day; Duration: 90 days 06/01/2024 Active Escitalopram Oxalate 20 MG TAKE 1 TABLET BY MOUTH DAILY; Duration: 90 Active Immunizations Vaccine Route Administration Date [...] Problem Status W/U Status Risk Notes Problem Generalized anxiety disorder (71967362) CAROL (generalized anxiety disorder) (F41.1) Active confirmed Problem Attention deficit hyperactivity disorder (912157867) Adult ADHD (F90.9) Active confirmed Encounters Encounter Location Date Provider Diagnosis [address] [address] 07/07/2025 [place] Jose Elias[address] [address] 08/10/2024 Romeo Barriosovan Adult ADHD F90.[address] [address] 09/09/2024 Romeo Barriosovan Adult ADHD F90.[address] [address] 09/12/2024 Romeo Barriosovan Adult ADHD F90.[address] [address] 10/09/2024 Romeo Barriosovan Adult ADHD F90.[address] [address] 10/11/2024 Romeo Barriosovan Adult ADHD F90.[address] [address] 11/08/2024 Romeo Jose Elias[address] [address] 11/10/2024 Romeo Barriosovan Adult ADHD F90.[address] [address] 11/13/2024 Romeo Barriosovan Adult ADHD F90.[address] [address] 11/13/2024 Romeo Moctezuma Adult ADHD F90.9 Assessments Encounter Date Diagnosis (ICD Code) Assessment Notes Treatment Notes Treatment Clinical Notes Section Notes 08/10/2024 Adult ADHD (ICD-10 - F90.9) 09/09/2024 Adult ADHD (ICD-10 - F90.9) 09/12/2024 Adult ADHD (ICD-10 - F90.9) 10/09/2024 Adult ADHD (ICD-10 - F90.9) 11/10/2024 Adult ADHD (ICD-10 - F90.9) 11/13/2024 Adult ADHD (ICD-10 - F90.9) 11/13/2024 Adult ADHD (ICD-10 - F90.9) 10/11/2024 Adult ADHD (ICD-10 - F90.9) Plan Of Treatment No Information Insurance Providers Payer Name Payer Address Payer Phone Subscriber Number Group Number Insured Name Patient Relationship to Insured Coverage Start Date Coverage End Date [facility] [address] [address] [place] [address] [phone] [id number] Cristina Green Self - patient is the insured Medical (General) History Medical History History ICD Code Pap: Over a year ago attention deficit disorder: Yes Other not mentioned: Pain in left hip that radiates down the leg - ongoing since August 2019
[2025-08-05 18:29] LABS: Hematocrit 39.2 % (37.0-47.0); Hemoglobin 13.3 g/dL (12.0-15.0); Immature Granulocyte Percent A 1.1 % (0-0.5); Lymphocytes Absolute Auto 2.36 K/mm3 (0.9-3.2); Mean Corpuscular HGB Conc 33.9 g/dl (32-36); Mean Corpuscular Hemoglobin 30.5 pg (26-34); Mean Corpuscular Volume 89.9 fl (80-100); Nucleated Red Blood Cells Absolute Auto 0.000 K/mm3 (0.0-0.012); Nucleated Red Blood Cells Perc 0.0 % (0.0-0.2); Platelet Count Result 253 k/mm3 (150-375); Red Blood Count 4.36 M/mm3 (4.2-5.4); White Blood Count 9.6 K/mm3 (4.5-10.0)
[2025-08-05] MEDS: AMPICILLIN SODIUM 2 GM in SODIUM CHLORIDE 0.9% IV 100 ML 200 ML IVPB (19:26)
[2025-08-05] MEDS: LACTATED RINGERS 1,000 ML 125 ML IV CONT (19:27)
[2025-08-05 19:49] LABS: Syphilis IgG/IgM Antibody Non-Reactive (Nonreactive)
[2025-08-05] MEDS: OXYTOCIN 30 UNITS/NS 500 ML 30 UNITS/500 ML BAG IV CONT (20:02)
--- NOTE | 2025-08-05 23:54 | LDADM ---
This patient, Cristina Green, was admitted to Labor/Delivery/Recovery 109 on 08/05/25 at 16:57. Plans for labor, pain management and were discussed with patient. Patient/family oriented to hospital policies and general routines including ID bracelet, bed and alarms, visiting hours, pain management, procedures, bathroom and other care routines, personal items, smoking policy, room service/diet and guest tray routines, security routines, and visiting hours. Patient/Family are encouraged to report perceived risks to care and to ask questions if they do not understand what they are told or what they should do. See OBIX for further documentation.
[2025-08-06] VITALS (73 sets, daily range): BP systolic 71–162; BP diastolic 42–131; PULSE 37–96; RESP 16–18; TEMP 36.3–37.6; O2SAT 75–100
[2025-08-06] MEDS: AMPICILLIN SODIUM 1 GM in SODIUM CHLORIDE 0.9% IV 50 ML 100 ML IVPB ×2 (00:10→03:48)
--- NOTE | 2025-08-06 02:10 | WPDANESEPP ---
Anes - Eval Pre Procedure Procedure: Labor epidural Date/Time: 08/06/25 02:10 Surgeon: Riccardo Preop Diagnosis: Abdominal pain with contractions Pre Op Diagnosis: IOL Patient Data Age: 34 Gender: F Height: 1.75 m Weight: 95 kg Last Vital Signs Temp 98 F 08/05/25 22:00 Pulse 71 08/06/25 02:01 BP 118/62 08/06/25 02:01 Pulse Ox 100 08/06/25 02:06 Allergies Allergy/AdvReac Type Severity Reaction Status Date / Time No Known Allergies Allergy Verified 08/01/25 14:20 Home Medications ?Medication ?Instructions ?Recorded ?Confirmed ?Type escitalopram oxalate 20 mg tablet 20 mg PO DAILY 12/19/24 08/01/25 History vits no.126-ferrous fum tablet PO 12/19/24 08/01/25 History 28 mg iron-folic acid 800 mcg tablet (Classic ) ondansetron HCl 4 mg tablet 4 mg PO Q6H PRN nausea and 12/30/24 08/01/25 Rx vomiting #30 tabs aspirin 81 mg capsule 81 mg PO DAILY 07/13/25 08/01/25 History Laboratory Tests 08/05/25 18:13 WBC 9.6 K/mm3 (4.5-10.0) RBC 4.36 M/mm3 (4.2-5.4) Hgb 13.3 g/dL (12.0-15.0) Hct 39.2 % (37.0-47.0) MCV 89.9 fl (80-100) MCH 30.5 pg (26-34) MCHC 33.9 g/dl (32-36) RDW 13.2 % (11.5-14.5) Plt Count 253 k/mm3 (150-375) MPV 9.0 fl (7.4-10.4) Immature Gran % (Auto) 1.1 H % (0-0.5) Neut % (Auto) 64.1 % (45.5-73.1) Lymph % (Auto) 24.5 % (18.3-44.2) [place] % (Auto) 9.1 H % (2.6-8.5) Eos % (Auto) 0.8 % (0-4.4) Baso % (Auto) 0.4 % (0.2-1.2) Lymph # (Auto) 2.36 K/mm3 (0.9-3.2) [place] # (Auto) 0.9 H K/mm3 (0.1-0.6) Eos # (Auto) 0.1 K/mm3 (0-0.3) Baso # (Auto) 0.0 K/mm3 (0.0-0.1) Abs Immat Gran (auto) 0.11 H K/mm3 (0.00-0.031) Absolute Neuts (auto) 6.2 K/mm3 (1.3-6.7) Absolute Nucleated RBC 0.000 K/mm3 (0.0-0.012) Nucleated RBC % 0.0 % (0.0-0.2) Syphilis IgG/IgM Ab Non-reactive (Nonreactive) Blood Type O Positive Antibody Screen Negative : gestational age HCG: positive Patient hx anesthesia problems: none Family hx anesthesia problems: none Results Review: All pre-operative results and documents have been reviewed as part of the pre-operative evaluation. [facility] Past Medical History Medical History and not yet delivered Overweight (BMI 25.0-29.9) History of gestational hypertension Anxiety Family History Family History Father Depression Mother Depression Sibling Depression Social History Social History Smoking status: Never smoker Alcohol intake: former Substance use: former Substance use type: marijuana Do You Feel Safe in your Home?: Yes Lack of Transportation: No Lack of Food: Never True Current Housing: I Have Housing Concerned About Future Housing: No Difficulty Paying Gas/Electric Bills: No Difficulty Paying for Meds: No Currently Unemployed: No Education: Master's Degree or Higher Difficulty w/ Childcare or Family Care: No Living arrangements: with family Occupation/Education: occupation 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
[2025-08-06] MEDS: PHENYLEPHRINE 1,000 MCG/10 ML SYRINGE 100 MCG IV PUSH ×2 (02:37→03:05)
[2025-08-06] MEDS: ONDANSETRON INJ 4 MG/2 ML VIAL IV PUSH (02:37)
--- NOTE | 2025-08-06 05:14 | WPDHPUPDATE1 ---
History and Physical Update Update Date/Time: 08/06/25 05:14 34 yo who presents at 39w for IOL History and Physical has been reviewed, including an updated exam of the patient. There are NO changes in the patient's condition. Risks, benefits, and alternatives have been discussed and questions answered. Patient agrees to proceed with procedure. - h/o GHTN- low dose ASA - depression- lexapro - varicella non-immune - GBS bacteruria; will need ppx in labor -admit to L&D -plan for pitocin IOL -continuoue EFM
--- NOTE | 2025-08-06 05:15 | P.PCNOB_ITS ---
OB - Vaginal Delivery Note Procedure Delivery date: 08/06/25 Induction method: Per Pitocin Protocol Delivery augmentation: Rupture of Membranes Delivery monitor: External FHT and Internal Uterine Route of delivery: Episiotomy description: None Laceration Description: Perineal - 1st Degree Delivery repair: vicryl Specimen: No Quantitative Blood Loss (ml): 200 Anesthesia type: Epidural Disposition: Floor Complications: No immediate complications Narrative: Patient pushed for a spontaneous vaginal delivery. A nuchal cord x 1 was noted and delivered through. The fetus was delivered atraumatically and placed on the maternal abdomen. The cord was clamped and cut after 1 minute of life. The cord was double clamped and cut and a segment of cord was collected for cord gases. Cord blood was collected for blood type and Coomb's testing. The placenta delivered spontaneously and was noted to be intact. The perineum was inspected and a 1st degree perineal laceration was noted. The laceration was repaired with 3-0 vicryl in a running fashion. The fundus was noted to be firm and good hemostasis was noted. The mom and infant were stable in the delivery room. [place] Baby Date of : 08/06/25 Time of : 04:59 Gestational Age by Date: 39 gender: Female presentation: vertex position: Right Occiput Anterior Placenta delivery description: Spontaneous Cord Vessel Description: 3 Vessels and Nuchal Cord score one minute: 8 score five minutes: 9
[2025-08-06] MEDS: OXYTOCIN 30 UNITS/NS 500 ML 30 UNITS/500 ML BAG 125 UNITS IV CONT (05:20)
--- NOTE | 2025-08-06 07:27 | OBPPTRN ---
Patient transferred to post room #286 via wheelchair. Support person present. Oriented to unit, room, information board, rooming in, admission packet and security measures. Patient verbalizes understanding.
--- NOTE | 2025-08-06 14:35 | PC.NURSE ---
Introductions were made, then consulted with patient to assess needs related to . Discussed with mother her?plans to feed?her and the?experience so far. She is having intermittent pain with latch and would like a latch check at the next feeding time. She says that her nipple was slanted after feeding so we reviewed the need to place the nipple further back in baby's mouth. Resources provided for inpatient and outpatient services with the feeding sheet, mom/baby guide and name written on the communication board. Mother voiced understanding of information and will call for assistance at the next feeding. Reported to the Primary RN.
[2025-08-06] MEDS: DOCUSATE SODIUM 100 MG CAPSULE PO (15:35)
[2025-08-06] MEDS: WITCH HAZEL 40 PADS 1 PAD TOPICAL (15:35)
[2025-08-06] MEDS: IBUPROFEN 600 MG TABLET PO (15:35)
--- NOTE | 2025-08-06 16:15 | PC.NURSE ---
Primary RN Mehnaz Oviedo. assessed the latch when mother fed again. Parents have some concerns about tongue tie because their son had a tongue tie. Parents know we are unable to diagnose a tie but we can observe for restricted movement and/or tightness with the lips and tongue. Baby does have a labial frenulum that extends down to the edge of her upper gums. The lip is flexible and able to be flanged out. The frenulum under her tongue is not overly stretchy but she moves her tongue well past the lower gumline and past the lower lip. Unable to assess her ability to lift her tongue to the roof of her mouth. Parents are educated that it is unlikely the frenulum will present a barrier to and optimal latch. Mom is encouraged to call for feeding assistance as needed. Primary RN updated.
[2025-08-07] MEDS: ACETAMINOPHEN 325 MG TABLET 650 MG PO (05:19)
[2025-08-07] MEDS: IBUPROFEN 600 MG TABLET PO (05:19)
[2025-08-07 05:24] LABS: Hematocrit 37.3 % (37.0-47.0); Hemoglobin 12.3 g/dL (12.0-15.0)
[2025-08-07 07:50] VITALS: BP 122/67; PULSE 73; RESP 18; TEMP 37; O2SAT 97
--- NOTE | 2025-08-07 08:17 | PM.OBDSVD ---
DS: Admitting Diagnosis Discharge Date 08/07/25 Admitting Diagnosis intrauterine at term DS: Discharge Diagnosis Discharge Diagnosis (1) Normal vaginal delivery: Code(s): O80 - Encounter for full-term uncomplicated delivery Status: Acute OB - DS: Summary OB Procedures : None OB Procedures Intrapartum: Spontaneous Vag Delivery OB Procedures: : None Peripartum Data Laceration Description: Perineal - 1st Degree Episiotomy description: None Status at Discharge Functional status at discharge: independent ambulation Overall status at discharge: patient is back to baseline Time Spent with Patient Time attestation: Total time spent providing and/or coordinating discharge services: Time spent: Less than 30 minutes Exam Const: General: comfortable and no acute distress Resp: Effort & Inspection: normal respiratory effort Auscultation: clear to auscultation bilaterally Cardio: Rate: regular rate GI: GI Palp: Yes Soft to palpation Auscultation: normal bowel sounds Other: Fundus firm below umbilicus Psych: Appearance: grossly normal Mental Status: mental status grossly normal Affect: normal affect DS: Data Data Completed and Pending Labs on day of discharge: Labs from last 24 hours 08/07/25 05:07 Hgb 12.3 Hct 37.3 Discharge Plan Discharge Discharging Clinician: Remy Gu Patient Disposition: Home Activity: as tolerated and pelvic rest Diet: regular Patient Instructions: Antibiotic Form, Vaginal Delivery (DC) Patient Language: Nicaraguan Stand Alone Forms: General Discharge Information Follow-up/Referrals: Remy Gu MD [Physician, [facility]] - 4 Weeks Discharge Medications: New ibuprofen 600 mg tablet 600 mg PO Q6H PRN (Reason: pain) Qty: 30 0RF acetaminophen 500 mg tablet 500 mg PO Q6H PRN (Reason: pain) Qty: 30 0RF Continued escitalopram oxalate 20 mg tablet 20 mg PO DAILY Classic 28 mg iron- 800 mcg tablet PO ondansetron HCl 4 mg tablet 4 mg PO Q6H PRN (Reason: nausea and vomiting) Qty: 30 1RF Discontinued aspirin 81 mg capsule 81 mg PO DAILY Date of admission: 08/05/25 16:57 Primary Care Provider: UNKNOWN,DOCTOR Admitting Provider: Remy Gu Attending physician on admission: Remy Gu Condition: Stable
--- NOTE | 2025-08-07 13:30 | PC.NURSE ---
Observed latched to the left breast in cradle hold. Patient has been latching independently. Mom said that baby's lips were rolled in and she had flanged them out. The gape is wide and baby sucks off and on with stimulation. The latch appears appropriate. Mom does still have some nipple soreness and she has lanolin at bedside and hydrogel pads were provided. Patient is encouraged to call out for any assistance needed. Primary RN updated.
--- NOTE | 2025-08-07 14:50 | WPDANLDPN2 ---
Anes-Prog Note L&D Date/Time: 08/07/25 14:50 Comfortable throughout: labor and delivery Neuraxial method: epidural Epidural/Spinal procedure site: clean & non-tender Neuro status: Neuro function grossly intact. Vital Signs: Last Vital Signs Temp 37.0 C 08/07/25 07:50 Pulse 73 08/07/25 07:50 Resp 18 08/07/25 07:50 BP 122/67 08/07/25 07:50 Pulse Ox 97 08/07/25 07:50 O2 Del Method Room Air 08/07/25 08:15 Pain score (VAS): 0 I/O: Intake & Output 08/06/25 08/07/25 08/07/25 23:59 07:59 15:59 Intake Total 240 Balance 240 Patient feedback: Patient satisfied with anesthetic care.
[2025-08-07] MEDS: DOCUSATE SODIUM 100 MG CAPSULE PO (18:50)
[2025-08-07 19:54] VITALS: BP 135/75; PULSE 75; RESP 18; TEMP 36.9; O2SAT 98
[2025-08-08 07:50] VITALS: BP 115/70; PULSE 57; RESP 16; TEMP 36.6; O2SAT 98
[2025-08-08] MEDS: MULTIVIT/MIN/PREN/FOL AC/IRON TABLET 1 TAB PO (09:52)
[2025-08-08] MEDS: MEASLES,MUMPS,RUBELLA VACCINE 0.5 ML VIAL SUB-Q (10:53)
[2025-08-09 10:27] VITALS: BP 125/74; PULSE 79; RESP 18; TEMP 36.8; O2SAT 98
== END 2025-08-08 12:08 | disposition home or self-care (01) | DRG 807 ==
LOC: ANHLDR 17:01 → ANHOB2 08-06 07:34
PROVIDERS: Admitting Provider Student in an Organized Health Care Education/Training Program; Visit Provider Student in an Organized Health Care Education/Training Program
DX: O99.824 Streptococcus B carrier state complicating childbirth (principal); Z37.0 Single live birth; Z3A.39 39 weeks gestation of pregnancy; O99.344 Other mental disorders complicating childbirth; F32.A Depression, unspecified; O69.81X0 Labor and delivery complicated by cord around neck, without compression, not applicable or unspecified; O70.0 First degree perineal laceration during delivery
CPT/HCPCS: 36415; 85014; 85018; 85025; 86593; 86850; 86900; 86901; 90710; A9270; J0290; J2371; J2405; J2590; J2795; J7120

== ENCOUNTER 2025-09-11 10:23 | Outpatient (CLI) | payer OTHER, SELFPAY ==
--- OUTSIDE RECORDS SUMMARY | 2024-07-05 09:10 | XMS_ITS ---
Author Organization [facility] [email or web address] [facility] Address [address] [place] [phone] Care Team Providers Care Director Of Cloud Services Name Role Phone Jose Elias Romeo Primary Care Provider [phone] REASON FOR VISIT 3 month f/u Social History Sex Assigned At : Social History Observation Description Sex Assigned At Female Encounters Encounter [facility] [address] [address] [facility]/05/[facility] Romeo Moctezuma Plan Of Treatment Next Appt Details Provider Name:Romeo aldridge, 11/20/2025 03:30:00 PM, [address] [place] [address], [phone], Progress Notes * Bibi THOMASaDOB:1990 (35 yo F)Acc No.[id number]:07/05/2024 Progress Notes Patient: Otoniel HODGERAJWINDER Cristina Provider: Star Moctezuma MD :1990 A ge:33 Y S ex:Female Date:07/05/2024 Address:[address] [place], [place] [id number] Subjective: * Chief Complaints: * 1 . 3 month f/u. * Medical History: * Implants: Objective: * Vitals: Assessment: Plan: * Treatment: * Billing Information: * Visit Code: * Procedure Codes: Care Plan Details* * Electronic signature of Arian Moctezuma M.D. on 09/11/2025 at 12:00 PM WIRELESS SALES EXPERT Sign off status: Pending * Provider: Star Moctezuma MD Date: 0 07/05/2024 Generated for Alma tam/New/Donald on: 1 11/11/2024 12:00 PM WIRELESS SALES EXPERT
--- OUTSIDE RECORDS SUMMARY | 2024-07-06 10:10 | XMS_ITS ---
Author Organization [facility] Address [address] [place] [phone] Care Team Providers Care Goring Cutter Name Role Phone Jose Elias Romeo Primary Care Provider [phone] REASON FOR VISIT 3 month f/u Social History Sex Assigned At : Social History Observation Description Sex Assigned At Female Encounters [facility] [address] [address] 07/06/[facility] Romeo Moctezuma Plan Of Treatment Next Appt Details Provider Name:Romeo aldridge, 11/20/2025 03:30:00 PM, [address] [place] [address], [phone], Progress Notes * Bibi THOMASaDOB:1990 (35 yo F)Acc No.[id number]:07/06/2024 Progress Notes Patient: Otoniel HODGERAJWINDER Cristina Provider: Star Moctezuma MD :1990 A ge:33 Y S ex:Female Date:07/06/2024 Address:[address] [place], [place] [phone] Subjective: * Chief Complaints: * 1 . 3 month f/u. * Medical History: * Implants: Objective: * Vitals: Assessment: Plan: * Treatment: * Billing Information: * Visit Code: * Procedure Codes: Care Plan Details* * Electronic signature of Arian Moctezuma M.D. on 09/11/2025 at 12:00 PM ASSISTED LIVING ADMINISTRATOR Sign off status: Pending * Provider: Star Moctezuma MD Date: 0 07/06/2024 Generated for Alma tam/New/Donald on: 1 11/11/2024 12:00 PM ASSISTED LIVING ADMINISTRATOR
--- OUTSIDE RECORDS SUMMARY | 2025-07-24 09:30 | XMS_ITS ---
[facility] Organization [facility] Address [address] [place] [phone] Care Team Providers Care Finance Business Manager Name Role Phone Jose Elias Romeo Primary Care Provider REASON FOR VISIT annual Social History Sex Assigned At : Social History Observation Description Sex Assigned At Female Encounters Encounter Location Date Provider Diagnosis [address] [address] 07/24/2025 Romeo Moctezuma Plan Of Treatment Next Appt Details Provider Name:Romeo aldridge, 11/20/2025 03:30:00 PM, [address] [place] [address], [phone], Progress Notes * Bibi THOMASaDOB:1990 (35 yo F)Acc No.[id number]:07/24/2025 Annual Physical Patient: Cristina FOSTER Provider: Star Moctezuma MD :1990 A ge:34 Y S ex:Female Date:07/24/2025 Address:[address] [place], [place] [phone] Subjective: * Chief Complaints: * 1 . Annual. * Medical History: * Implants: Objective: * Vitals: Assessment: Plan: * Treatment: * Billing Information: * Visit Code: * Procedure Codes: Care Plan Details* * Electronic signature of Arian Moctezuma M.D. on 09/11/2025 at 12:00 PM TAILER OFF Sign off status: Pending * Provider: Star Moctezuma MD Date: 0 07/24/2025 Generated for Alma tam/New/Donald on: 1 11/11/2024 12:00 PM TAILER OFF
[2025-09-11 11:49] LABS: Beta HCG Quantitative < 2.39 mIU/ML
--- OUTSIDE RECORDS SUMMARY | 2025-09-11 12:00 | XMS_ITS | Clinical Summary ---
Author Organization [address] Address [facility] [place] [address] Care Team Providers Care Chief Of Vital Statistics Name Role Phone Kitty Roach MD Primary Care Provider [phone] Allergies No known active allergies Medications 25/iron [...] -EFW 94% @ 36wks -Gestational HTN at 82m0g--iqsa for IOL [x] Initial BMI: 23 [x] Labs: Labs: Lab Results Component Value Date ABORH O Positive 02/02/2023 IDCOOMB Negative 02/02/2023 [id number] Nonreactive 02/02/2023 LABRPR Nonreactive 02/02/2023 RUBELIGG Reactive [...] oz pur e alcohol) Social Connection and Isolation Panel Answer Date Recorded In a typical week, how many times do you talk on the phone with family, friends, or neighbors? More than three times a week 09/09/2023 How often do you get togethe r with friends or relatives? More than three times a week 09/09/2023 How often do you attend chur or amish services? Never 09/09/2023 Do you belong to any clubs o r organizations such as adventist groups, unions, fraternal or athletic groups, or [...] place to sleep or slept in a intermediate (including now)? No 09/09/2023 Evergreen Depression Scale Answer Date Recorded Evergreen Depression Scale Total 6 10/18/2023 The thought [...] Master's degree (e.g., MA, MS, Kori, MEd, [employer], [employer]ITA) 01/11/2020 Comments No Sex and Gender Information Value Date Recorded Sex Assigned at Not on file Legal Sex Female 12:31 PM OBSTETRICS GYNECOLOGY PHYSICIAN Gender Identity Not on file Sexual Orientation [...] Epidur al N Livin g 8 9 KRSTONEY OFF,B SHONA A Gregory rs, Gurwinder link MD Complications:None Delivery Location:[facility] Main C ampus ([facility] 58LD) Comments [id number] for new onset gHTN @ 39w0d (nml labs) Last Filed Vital Signs Vital Sign Reading Time Taken Comments Blood Pressure 121/82 10/18/2023 2:52 PM OBSTETRICS GYNECOLOGY PHYSICIAN Pulse 74 09/09/2023 7:35 AM CDT Temperature 36.3 C (97.3 F) 09/09/2023 7:35 AM CDT Respiratory Rate 18 09/09/2023 7:35 AM CDT Oxygen Saturation 100% 09/09/2023 7:35 AM CDT Inhaled Oxygen Concentration - - Weight 81 kg (178 lb 9.6 oz) 10/18/2023 2:52 PM OBSTETRICS GYNECOLOGY PHYSICIAN Height 175.3 cm (5' 9.02) 10/18/2023 2:52 PM CS T Body Mass Index 26.36 10/18/2023 2:52 PM OBSTETRICS GYNECOLOGY PHYSICIAN Plan of Treatment Health Maintenance Due Date Last Done Comments Varicella Vaccines (1 of 2 - 13+ 2-dose series) 2005 Hepatitis B Screening 2010 HPV Vaccines (1 - 3-dose SCDM series) 2019 Regular Well Visit/Exam 18-64 01/09/2021 01/10/2020 Cervical Cancer Screening 02/03/2024 02/02/2023 Depression Screening 10/18/2024 10/18/2023 Covid-19 Vaccine ( season) 2025 10/10/2022, 11/03/2021, 01/24/2021, Additional history exists Influenza Vaccine (#1) 2025 08/02/2023 DTaP/Tdap/Td Vaccine (2 - Td or Tdap) 06/21/2033 06/21/2023 Hepatitis C Screening Completed 06/02/2023 Pneumococcal vaccine <65 Aged Out No longer [...] LAB MICROBIOLOGY - GENERAL ORDERABLES Final Result [facility] [address] [facility] Department [place] [address] * Pap and High Risk HPV, reflex to Genotyping (02/02/2023 1:59 PM CDT) Thin prep (Pap test) 02/02/2023 1:59 PM CDT 02/02/2023 4:40 PM CDT Narrative PATHOLOGY [facility] - 02/10/2023 2:37 PM CDT EPIC results best viewed via link to PDF [facility] [place] [address] Note to Patients: This report may contain [...] Gender: F : 1990 (Age: 32) Address: [address] [place], [place] [address] Hospital #: [id number] Service: Gynecology Location: Patient Type: [facility] SPECIMEN Taken: 02/02/2023 [...] 70. This HPV test was performed at [facility] in [place], [place] utilizing the Gen-Probe Aptima assay. /02/10/2023 09:47 By this signature, I attest that [...] clinical information and biopsy results as indicated. [facility] Clinical Laboratory Improvement Amendments (CLIA) mandate that cytologic and histologic results be correlated for laboratory quality control director & improvement standards. FOR ALL HIGH-GRADE CASES [...] screening. The [place] [address]. The Gonorrhea/[place] [address]. Report Images and scanned documents, if included only viewable in PDF version The performance characteristics of some immunohistochemical stains, in-situ hybridization and fluorescence in-situ hybridization tests and immunophenotyping by flow cytometry cited in this report (if any) were determined by the Surgical Pathology Department at [facility] as part of an ongoing manager quality improvement program and in compliance with [...] determined by the Surgical Pathology Department of [facility]. It has not been cleared or approved by the U. S. Food and Drug Administration. us Kelly Li MD LAB CYTOLOGY O RDERABLES Final Result PATHOLOGY [facility] 3rd Floor [place], [place] [phone] from Last 3 Months or Most Recently Relevant to Health Maintenance Insurance [facility] Address: [address] [address] [place] [address] [facility] Address: [address] [address] [place] [address] Advance Directives For more information, please contact: [phone] * Full Code (Latest Code Status on File) Date Activated Date Inactivated Comments 09/08/2023 7:58 AM 09/09/2023 7:06 PM * Full Code Date Activated Date Inactivated Comments 09/07/2023 10:26 PM 09/08/2023 7:58 AM Full CPR i n case of cardiopulmonary arrest Care Teams Chief Of Vital Statistics Relationship Specialty Start Date End Date Kitty Roach MD [address] [place] [address] PCP - General Civil Engineering Professional 11/28/19
--- OUTSIDE RECORDS SUMMARY | 2025-09-11 12:00 | XMS_ITS | Patient Health Record ---
Author Organization [facility] [employer] Address [address] [place] [address] Care Team Providers Care Tankage Supervisor Name Role Phone Romeo Moctezuma Primary Care Provider Allergies No Known Allergies Reason For Referral No Information Medications Medication SIG (Take, Route, Frequency, Duration) Notes Start Date End Date Status Concerta 36 MG 1 tablet in the morning Orally Once a day; Duration: 30 days can give generic or brand, depending on insurance. back to 36 mg because higher dose gave side effects 08/23/2025 09/22/2025 Active buPROPion HCl ER (XL) 150 MG 1 tablet in the morning Orally Once a day; Duration: 90 days 06/01/2024 Active Escitalopram Oxalate 20 MG TAKE 1 TABLET BY MOUTH DAILY; Duration: 90 Active Immunizations Vaccine Route Administration Date Status Comme nts Flulaval Quadrivalent (Influenza Vaccine) IM Intramuscular 07/24/2024 Administered Flulaval Unknown 08/12/2020 Pending Comirnatruma Covid-19 Vaccine, mRNA (2023-2024Formula) IM Intramuscular 07/24/2024 Administered Social History Tobacco [...] Status Risk Notes Problem Generalized anxiety disorder (83399948) CAROL (generalized anxiety disorder) (F41.1) Active confirmed Problem Attention deficit hyperactivity disorder (620291721) Adult ADHD (F90.9) Active confirmed Encounters Encounter Location Date Provider Diagnosis [address] [address] 07/07/[address] [address] 09/12/2024 Romeo Jose Elias Adult ADHD F90.[address] [address] 10/09/2024 Romeo Barriosovan Adult ADHD F90.[address] [address] 10/11/2024 Romeo Jose Elias Adult ADHD F90.[address] [address] 11/08/2024 Romeo Jose Elias[address] [address] 11/10/2024 Romeo Jose Elias Adult ADHD F90.[address] [address] 11/13/2024 Romeo Jose Elias Adult ADHD F90.[address] [address] 11/13/2024 Romeo Barriosovan Adult ADHD F90.[address] [address] 08/17/2025 Romeo Barriosovan Adult ADHD F90.[address] [address] 08/22/2025 Romeo Barriosovan Adult ADHD F90.9 Assessments Encounter Date Diagnosis (ICD Code) Assessment Notes Treatment Notes Treatment Clinical Notes Section Notes 09/12/2024 Adult ADHD (ICD-10 - F90.9) 10/09/2024 Adult ADHD (ICD-10 - F90.9) 10/11/2024 Adult ADHD (ICD-10 - F90.9) 11/10/2024 Adult ADHD (ICD-10 - F90.9) 11/13/2024 Adult ADHD (ICD-10 - F90.9) 11/13/2024 Adult ADHD (ICD-10 - F90.9) 08/17/2025 Adult ADHD (ICD-10 - F90.9) 08/22/2025 Adult ADHD (ICD-10 - F90.9) Plan Of Treatment Next Appt Details Provider Name:Romeo aldridge, 11/20/2025 03:30:00 PM, [address] [place], [address], Insurance Providers Payer Name Payer Address Payer Phone Subscriber Number Group Number Insured Name Patient Relationship to Insured Coverage Start Date Coverage End Date [facility] [address] [address] [place] [address] [id number] Cristina Green Self - patient is the insured Medical (General) History Medical History History ICD Code Pap: Over a year ago attention deficit disorder: Yes Other not mentioned: Pain in left hip that radiates down the leg - ongoing since August 2019
== END 2025-09-11 10:24 | disposition home or self-care (01) ==
PROVIDERS: Visit Provider Student in an Organized Health Care Education/Training Program
DX: Z30.9 Encounter for contraceptive management, unspecified (principal)
CPT/HCPCS: 36415; 84702